=== PATIENT | female | born 1980 | race Caucasian/White ===

== ENCOUNTER 2016-08-26 12:54 | Emergency (ER) | payer OTHER ==
[~2016-08-26] VITALS: Ht 172.7 cm; Wt 120.2 kg
[2016-08-26 13:03] VITALS: BP 129/89
--- NOTE | 2016-08-26 13:21 | ED NECK/BACK PAIN COMPLAINT ---
History of Present Illness General Chief Complaint: Low Back Pain/Injury Stated Complaint: R LOW BACK PAIN Source: patient, family Exam Limitations: no limitations Vital Signs & Intake/Output Vital Signs & Intake/Output Vital Signs Date Time Temp Pulse Resp B/P B/P Pulse O2 O2 Flow FiO2 Mean Ox Delivery Rate 08/26 1303 98.3 90 18 129/89 97 Room Air Allergies Coded Allergies: NO KNOWN ALLERGIES (08/26/16) Reconcile Medications Cyclobenzaprine HCl 10 MG TABLET 1 TAB PO TID BACK PAIN Ibuprofen 400 MG TABLET 1 TAB PO TID BACK PAIN Triage Note: PT TO ED FOR LOWER BACK PAIN AFTER LIFTING SOMETHING AT WORK YESTERDAY. REPORTING SHE FELT A "TWISTING FEELING AND ITS BEEN HURTING EVER SINCE". TOOK MOTRIN AND EXCEDERIN AT HOME WITH NO RELIEF. DENIES ANY LOSS OF B/B OR CHANGES IN SENSATION. Triage Nurses Notes Reviewed? yes : No Patient currently breastfeeds: No HPI: 35F NO PMH WITH ACUTE RIGHT SIDED LUMBAR BACK PAIN AFTER PICKING UP SOMETHING HEAVY. RADIATING TO RIGHT HIP BUT NOT DOWN LEG. NO SADDLE PARESTHESIA OR INCONTINENCE. MOTOR AND SENSORY FUNCTIONS ARE INTACT. REPORTS TENDERNESS TO THE RIGHT LUMBAR PARASPINAL AREA. Past History Travel History Traveled to [place] past 21 day No Medical History Any Pertinent Medical History? see below for history Neurological: NONE EENT: NONE Cardiovascular: NONE Respiratory: NONE Gastrointestinal: NONE Hepatic: NONE Renal: NONE Musculoskeletal: NONE Psychiatric: NONE Endocrine: NONE Blood Disorders: NONE Cancer(s): NONE Surgical History Surgical History: non-contributory Psychosocial History What is your primary language Kinyarwanda Tobacco Use: Never used ETOH Use: denies use Illicit Drug Use: denies illicit drug use Family History Hx Contributory? No Review of Systems Review of Systems Constitutional: Reports: no symptoms. Eyes: Reports: no symptoms. Ears, Nose, Throat, Mouth: Reports: no symptoms. Respiratory: Reports: no symptoms. Cardiovascular: Reports: no symptoms. Gastrointestinal/Abdominal: Reports: no symptoms. Musculoskeletal: Reports: see HPI. Skin: Reports: no symptoms. Neurological/Psychological: Reports: no symptoms. All Other Systems: Reviewed and Negative Physical Exam Physical Exam General Appearance: well developed/nourished, mild distress Head: atraumatic Eyes: Bilateral: normal appearance. Ears, Nose, Throat, Mouth: hearing grossly normal Neck: normal inspection, supple, full range of motion, no midline tenderness Respiratory: normal breath sounds Cardiovascular: regular rate/rhythm Gastrointestinal: soft, non-tender Back: normal inspection, RIGHT PARASPINAL TENDERNESS, REFUSES STRAIGHT LEG EXAM Extremities: normal range of motion Neurologic/Psych: no motor/sensory deficits, awake, alert, oriented x 3, normal mood/affect Skin: intact, normal color, warm/dry, RIGHT LOWER BACK BLISTER FROM HEATING PAD Progress Differential Diagnosis: AAA, aortic dissection, C spine injury, carotid dissection, cauda equina syn, herniated disc, myofascial strain, pyelo/UTI, sciatica, spinal cord inj, thoracic outlet syn, T/L spine injury, ureterolithiasis Plan of Care: Current Medications Sig/Kendy Start time Last Medication Dose Stop Time Status Admin Ketorolac 60 MG ONCE ONE 08/26 1330 UNVr Tromethamine 08/26 1331 (Toradol) PATIENT FEELS BETTER AFTER TORADOL AND FLEXERIL ([facility] Departure Departure Time of Disposition: 1423 Disposition: HOME OR SELF CARE Condition: Stable Clinical Impression Primary Impression: Lumbar back pain with radiculopathy affecting right lower extremity Referrals: MAGO PRINCE,ELSIE ANTONIO MD,JOHNSON Hernandez (PCP/Family) Additional Instructions: WARM COMPRESSES ARE OK BUT ONLY FOR 5-10 MINUTES AT A TIME. KEEP THE AREA CLEAN AND DRY. FOLLOW UP WITH YOUR DOCTOR. Departure Forms: Customer Survey General Discharge Information Prescriptions: Current Visit Scripts Cyclobenzaprine HCl 1 TAB PO TID #30 TAB Ibuprofen 1 TAB PO TID #30 TAB
[2016-08-26] MEDS ORDERED: IBUPROFEN400 M1 PO (14:25)
[2016-08-26] MEDS ORDERED: CYCLOBENZAPRINE10 M1 PO (14:25)
== END 2016-08-26 14:36 ==
LOC: ERH 12:54
DX: M54.16 Radiculopathy, lumbar region (principal)
CPT/HCPCS: 96372; J1885